=== PATIENT | male | born 1985 | race Two or more races ===

== ENCOUNTER 2020-04-17 21:32 | Emergency (ER) | payer MEDICAID, SELFPAY ==
[~2020-04-17] VITALS: Ht 172.7 cm; Wt 75.0 kg
[2020-04-17] MEDS ORDERED: RISPERIDONE 1MG TABLET PO SCH (22:15)
[2020-04-17] MEDS ORDERED: BACITRACIN ZINC OINT UDPKT TOP ONE (22:15)
[2020-04-17] MEDS ORDERED: QUETIAPINE FUMARATE 25MG TABLET PO SCH (23:00)
[2020-04-17 23:08] LABS: BASOPHILS % 0.5 % (0.0-2.0); EOSINOPHILS % 0.4 % (0.0-5.0); HEMATOCRIT. 37.7 % (42.0-52.0); HEMOGLOBIN. 12.6 g/dL (14.0-18.0); LYMPHOCYTES % 17.3 % (20.0-50.0); MEAN CORPUSCULAR HEMOGLOBIN 29.5 pg (28.0-32.0); MONOCYTES % 7.8 % (2.0-8.0); PLATELET 249 x1000/uL (130-400); RED BLOOD CELL COUNT 4.28 mill/uL (4.7-6.1); RED CELL DISTRIBUTION WIDTH 12.6 % (11.6-14.6)
[2020-04-17] MEDS: OLANZAPINE 10MG TABLET PO SCH (23:08)
[2020-04-17 23:15] LABS: CHLORIDE 111 mEq/L (98-107)
[2020-04-17 23:19] LABS: ETHANOL BLOOD < 10 mg/dL
[2020-04-18 08:43] LABS: CLARITY URINE CLEAR (CLEAR); COLOR URINE YELLOW (YELLOW); KETONES URINE NEGATIVE (NEGATIVE); LEUKOCYTE ESTERASE URINE NEGATIVE (NEGATIVE); NITRITE URINE NEGATIVE (NEGATIVE); OCCULT BLOOD URINE NEGATIVE (NEGATIVE); PH URINE 5.5 (4.5-8.0); PROTEIN URINE NEGATIVE (NEGATIVE); SPECIFIC GRAVITY URINE 1.022 (1.005-1.030); UROBILINOGEN URINE 0.2 E.U./dL (0.2-1.0)
[2020-04-18 08:52] LABS: *AMPHETAMINES SCREEN URINE NEGATIVE (NEGATIVE); *BARBITURATES SCREEN URINE NEGATIVE (NEGATIVE); *BENZODIAZEPINES SCREEN URINE NEGATIVE (NEGATIVE); *COCAINE SCREEN URINE PRESUMTIVE POSITIVE (NEGATIVE); METHADONE URINE SCREEN NEGATIVE (NEGATIVE); OPIATES URINE SCREEN NEGATIVE (NEGATIVE)
[2020-04-18 08:53] LABS: PHENCYCLIDINE URINE SCREEN NEGATIVE (NEGATIVE)
[2020-04-18 09:00] LABS: CANNABINOID URINE SCREEN NEGATIVE (NEGATIVE)
[2020-04-18] MEDS: OLANZAPINE 10MG TABLET PO SCH (09:33)
[2020-04-19] MEDS: OLANZAPINE 10MG TABLET PO SCH (09:03)
[2020-04-20] MEDS: OLANZAPINE 10MG TABLET PO SCH (09:40)
[2020-04-20 19:52] VITALS: BP 117/76
== END 2020-04-20 20:04 | disposition short-term general hospital (02) ==
LOC: ER 21:32
DX: F23 Brief psychotic disorder (principal); R45.851 Suicidal ideations; I49.9 Cardiac arrhythmia, unspecified; Z72.89 Other problems related to lifestyle
CPT/HCPCS: 36415; 80053; 80305; 80320; 81003; 85025; 93005; 99285; G0480